=== PATIENT | male | born 1990 | race Caucasian/White ===

== ENCOUNTER 2016-11-21 15:39 | Emergency (ER) | payer OTHER ==
[~2016-11-21] VITALS: Ht 180.3 cm; Wt 78.0 kg
[2016-11-21 15:46] VITALS: BP 123/59
--- NOTE | 2016-11-21 17:00 | NUR ---
PT TO OVER FLOW.
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
--- NOTE | 2016-11-21 17:05 | NUR ---
[place] EVALUATING PT IN OVERFLOW.
[2016-11-21] MEDS ORDERED: KETOROLAC 60 MG/2 ML VIAL IM ONE (17:10)
[2016-11-21 17:22] VITALS: BP 123/59
== END 2016-11-21 17:22 | disposition home or self-care (01) ==
LOC: EDBD 15:39 → MED 15:39
DX: S83.92XA Sprain of unspecified site of left knee, initial encounter (principal); W50.0XXA Accidental hit or strike by another person, initial encounter; Y93.72 Activity, wrestling; Y92.89 Other specified places as the place of occurrence of the external cause; Y99.8 Other external cause status
CPT/HCPCS: 29505; 73562; 96372; 99284; J1885